=== PATIENT | female | born 1965 | race Two or more races ===

== ENCOUNTER 2023-09-01 11:04 | Emergency (ER) | payer OTHER ==
[~2023-09-01] VITALS: Ht 154.9 cm; Wt 78.5 kg
[2023-09-01] MEDS ORDERED: ATIVAN0.5 M1 (12:04)
[2023-09-01] MEDS ORDERED: DEPAKOTE ER500 MG (12:04)
[2023-09-01] MEDS ORDERED: FAMOTIDINE/PF 20 MG in 0.9 % SODIUM CHLORIDE 8 ML IV PUSH STA (12:12)
[2023-09-01] MEDS ORDERED: METOCLOPRAMIDE HCL 10 MG in DEXTROSE 5 % IN WATER 50 ML IV ONE (12:15)
[2023-09-01] MEDS ORDERED: 0.9 % SODIUM CHLORIDE 1,000 ML IV SCH (12:15)
[2023-09-01] MEDS ORDERED: HYOSCYAMINE SULFATE 0.125 MG TAB.SUBL SL ONE (12:15)
[2023-09-01 13:15] LABS: HEMATOCRIT 38.4 % (36.0-45.00); HEMOGLOBIN 12.9 g/dL (12.0-15.00); MEAN CELL VOLUME 91.5 fL (80.00-100.00); MEAN CORPUSCULAR HEMOGLOBIN 30.8 pg (27.00-32.0); MEAN CORPUSCULAR HGB CONC 33.6 g/dl (32.0-36.0); PLATELET COUNT 265 K/uL (150-450)
[2023-09-01 14:32] LABS: ALBUMIN 2.6 gm/dL (3.4-5.0); ALKALINE PHOSPHATASE 63 U/L (50-136); ALT/SGPT 22 U/L (12-78); AMYLASE 65 U/L (25-115); ANION GAP 8 (10.0-20.0); AST/SGOT 11 U/L (15-37); BILIRUBIN TOTAL 0.46 mg/dL (0.3-1.2); BILIRUBIN,CONJUGATED < 0.10 mg/dL (0.0-0.2); BILIRUBIN,UNCONJUGATED 0.36 mg/dL (0.0-0.6); BLOOD UREA NITROGEN 10 mg/dL (7-18); BUN CREA RATIO 17 (7.0-25.0); CALCIUM 9.3 mg/dL (8.5-10.1); CARBON DIOXIDE 29 mEq/L (21-32); CHLORIDE 106 mmol/L (98-107); CREATININE SERUM 0.59 mg/dL (0.55-1.02); GFR 105.06; GLOBULINA 5.1 G/DL (2.4-3.5); LIPASE 37 U/L (13-75); POTASSIUM 4.28 mEq/L (3.5-5.1); SODIUM 139 mmol/L (136-145); TOTAL PROTEIN 7.7 gm/dL (6.4-8.2)
[2023-09-01 14:35] LABS: PH,URINE 7.5 (5.0-8.0); URINE APPEARANCE Clear; URINE BILIRRUBIN Negative (NEGATIVE); URINE BLOOD Trace; URINE COLOR Yellow; URINE GLUCOSE Negative (NEGATIVE); URINE LEUKOCYTE Negative; URINE NITRATE Negative; URINE PROTEIN Negative (NEGATIVE); URINE UROBILINOGEN 0.2 E.U./dl
[2023-09-01 14:39] LABS: URINE RBC 12.6 uL (0.0-20.8)
[2023-09-01 14:49] LABS: URINE WBC 1.5 uL (0.0-23.2)
[2023-09-01 14:56] LABS: GLUCOSE FASTING 95 mg/dL (65-100); OSMOLALITY SERUM 276 MOSM/KG (275-295)
[2023-09-01] MEDS ORDERED: PEPCID AC20 MG PO (15:39)
[2023-09-01] MEDS ORDERED: LEVSIN/SL0.125 MG SL (15:39)
== END 2023-09-01 15:55 | disposition home or self-care (01) ==
LOC: ER 11:04
PROVIDERS: General Practice
DX: R10.11 Right upper quadrant pain (principal); Z88.6 Allergy status to analgesic agent
CPT/HCPCS: 36415; 76700; 96365; 96366; 99284; J2765; J3490; J7030